=== PATIENT | female | born 1960 | race Caucasian/White ===

== ENCOUNTER 2022-05-07 11:12 | Emergency (ER) | payer OTHER ==
[~2022-05-07] VITALS: Ht 157.5 cm; Wt 65.9 kg
[2022-05-07] MEDS ORDERED: etomidate 2mg/ml inj. IV ONE (13:10)
[2022-05-07] MEDS: LIDOcaine 1% W/epiNEPHrine 1:100,000 20ml vial IJ ONE ×2 (13:15→13:48)
[2022-05-07] MEDS ORDERED: ibuprofen tablet 400 MG TABLET PO ONE (14:00)
[2022-05-07 16:12] VITALS: BP 127/88
== END 2022-05-07 16:16 | disposition home or self-care (01) ==
LOC: ER 11:13
DX: S52.591A Other fractures of lower end of right radius, initial encounter for closed fracture (principal); S52.691A Other fracture of lower end of right ulna, initial encounter for closed fracture; S81.811A Laceration without foreign body, right lower leg, initial encounter; W01.198A Fall on same level from slipping, tripping and stumbling with subsequent striking against other object, initial encounter; Y93.01 Activity, walking, marching and hiking; Y92.89 Other specified places as the place of occurrence of the external cause; Y99.9 Unspecified external cause status
CPT/HCPCS: 12001; 25605; 73110; 94799; 99152; 99153; 99285; J7030; 94760; A4565; A6258; A6446; A6449